=== PATIENT | female | born 1980 | race Two or more races ===

== ENCOUNTER 2020-07-02 11:37 | Day surgery (SDC) | payer OTHER ==
[~2020-07-02 11:37] MED LIST: SYNTHROID175 MCG PO
== END 2020-07-02 22:40 | disposition home or self-care (01) ==
LOC: CIR.AMB 11:37
PROVIDERS: ATTEND Obstetrics & Gynecology Obstetrics
DX: N87.0 Mild cervical dysplasia (principal); N72 Inflammatory disease of cervix uteri; Z20.822 Contact with and (suspected) exposure to COVID-19